=== PATIENT | male | born 1955 | race Caucasian/White ===

== ENCOUNTER 2019-09-28 17:16 | Inpatient (IN) ==
[2019-09-28] MEDS ORDERED: KETOROLAC 30 MG/1 ML VIAL IV STA (17:39)
[2019-09-28 18:33] LABS: Basophils % 0.3 % (0.0-0.8); Eosinophils % 0.3 % (0.00-10.9); Hematocrit 41.6 VOL% (42.0-52.0); Hemoglobin 12.8 GM/DL (14.0-18.0); Immature Granulocytes % 1.3 %; Immature Granulocytes Absolute 0.16 #; Lymphocytes # 1.3 10*3/uL (1.4-4.0); Lymphocytes % 9.9 % (21.2-54.2); Mean Corpuscular HGB Conc 30.8 GM/DL (32-36); Mean Corpuscular Volume 81.3 FL (87-102); Mean Platelet Volume 11.8 FL (9.6-12.0); Monocytes % 8.7 % (1.7-12.7); Neutrophils % 79.5 % (38.7-73.9); Platelet Count 211 T/CUMM (130-400); Red Blood Count 5.12 MC/CUMM (3.8-5.5); Red Cell Distribution Width 16.4 % (9.3-17.3); White Blood Count 12.7 T/CUMM (4-12)
[2019-09-28 19:02] LABS: Alanine Aminotransferase 45 U/L (16-61); Albumin 3.5 G/DL (3.4-5.0); Alkaline Phosphatase 101 U/L (45-117); Aspartate Amino Transferase 63 U/L (0-37); Blood Urea Nitrogen 13 MG/DL (7-18); Calcium 9.7 MG/DL (8.5-10.1); Estimated Glom Filtration Rate 136 ML/MIN; Ferritin 52.3 ng/ml (26-388); Glucose 99 MG/DL (74-106); Osmolality,Calculated 267.2 MOS/KG (273-304); Troponin I < 0.015 NG/ML (0.00-0.045)
[2019-09-28] MEDS ORDERED: POTASSIUM BICARB EFFERVESCENT 25 MEQ TABLET PO ONE (19:13)
[2019-09-28] MEDS ORDERED: AZITHROMYCIN INJ 500 MG in SODIUM CHLORIDE 0.9% 250 ML IV STA (19:14)
[2019-09-28] MEDS ORDERED: cefTRIAXone 1,000 MG in SODIUM CHLORIDE 0.9% 100 ML IV STA (19:14)
[2019-09-28 20:17] LABS: Apearance,Urine CLEAR (Clear); Bilirubin,Urine Negative (Negative); Blood, Urine Negative (Negative); Glucose,Urine (UA) Negative (Negative); Hyaline Casts,Urine 3 /LPF (0-3); Ketones,Urine 5 mg/dL (Negative); Mucus,Urine Occasional /LPF (Occasional); Nitrite,Urine Negative (Negative); Protein,Urine Negative; RBC,Urine 1 /HPF (0-4); Urine Color Yellow (Yellow); Urine Urobilinogen < 2.0 EU/DL (0.2-1.0); WBC,Urine 1 /HPF (0-6)
[2019-09-28] MEDS ORDERED: ACETAMINOPHEN 325 MG TABLET PO PRN (20:49)
[2019-09-28] MEDS ORDERED: GLUCAGON 1 MG VIAL IM PRN (20:49)
[2019-09-28] MEDS ORDERED: ONDANSETRON 4 MG/2 ML VIAL IV PRN (20:49)
[2019-09-28] MEDS ORDERED: DEXTROSE 50% 25 GM/50 ML SYRINGE IV PRN (20:49)
[2019-09-28] MEDS ORDERED: ALBUTEROL 2.5 MG/3 ML NEB RESP TX PRN (20:55)
[2019-09-28] MEDS ORDERED: clonazePAM 0.5 MG TABLET PO PRN (20:55)
[2019-09-28] MEDS: PREGABALIN 75 MG CAPSULE PO SCH (23:00)
[2019-09-28] MEDS: traZODone 50 MG TABLET PO SCH (23:00)
[2019-09-28] MEDS: ENOXAPARIN 40 MG/0.4 ML SYRINGE SUBCUT SCH (23:00)
[2019-09-28] MEDS: CITALOPRAM 40 MG TABLET PO SCH (23:00)
[2019-09-29] MEDS: CHOLECALCIFEROL 1,000 UNIT TABLET PO SCH (08:11)
[2019-09-29] MEDS: MULTIVITAMIN (OCUVITE) TABLET PO SCH (08:11)
[2019-09-29] MEDS: PREGABALIN 75 MG CAPSULE PO SCH ×2 (08:12→21:14)
[2019-09-29] MEDS: ASCORBIC ACID 500 MG TABLET PO SCH (08:12)
[2019-09-29] MEDS: MULTIVITAMIN (CENTRUM) TABLET PO SCH (08:12)
[2019-09-29] MEDS: PANTOPRAZOLE 40 MG TABLET PO SCH (08:12)
[2019-09-29 13:57] LABS: Basophils % 0.3 % (0.0-0.8); Eosinophils % 0.5 % (0.00-10.9); Hematocrit 36.1 VOL% (42.0-52.0); Hemoglobin 11.4 GM/DL (14.0-18.0); Immature Granulocytes % 1.1 %; Lymphocytes # 1.1 10*3/uL (1.4-4.0); Lymphocytes % 12.4 % (21.2-54.2); Mean Corpuscular HGB Conc 31.6 GM/DL (32-36); Mean Corpuscular Volume 79.2 FL (87-102); Mean Platelet Volume 12.2 FL (9.6-12.0); Monocytes % 8.9 % (1.7-12.7); Neutrophils % 76.8 % (38.7-73.9); Platelet Count 227 T/CUMM (130-400); Red Blood Count 4.56 MC/CUMM (3.8-5.5); Red Cell Distribution Width 16.3 % (9.3-17.3); White Blood Count 8.9 T/CUMM (4-12)
[2019-09-29 14:17] LABS: Albumin 3.3 G/DL (3.4-5.0); Bilirubin,Total 0.5 MG/DL (0.2-1.0); Calcium 9.1 MG/DL (8.5-10.1); Osmolality,Calculated 274.8 MOS/KG (273-304); Total Protein 7.8 G/DL (6.4-8.3)
[2019-09-29] MEDS: ASPIRIN CHEW 81 MG TABLET PO SCH (17:02)
[2019-09-29] MEDS ORDERED: AZITHROMYCIN INJ 500 MG in SODIUM CHLORIDE 0.9% 250 ML IV SCH (21:00)
[2019-09-29] MEDS: cefTRIAXone 1,000 MG in SYRINGE 1 EACH IV SCH (21:13)
[2019-09-29] MEDS: traZODone 50 MG TABLET PO SCH (21:13)
[2019-09-29] MEDS: CITALOPRAM 40 MG TABLET PO SCH (21:13)
[2019-09-29] MEDS: ENOXAPARIN 40 MG/0.4 ML SYRINGE SUBCUT SCH (21:14)
[2019-09-29] MEDS: AZITHROMYCIN 250 MG TABLET PO SCH (21:14)
[2019-09-30 05:42] LABS: Basophils # 0.1 10*3/uL (0.0-0.2); Basophils % 0.6 % (0.0-0.8); Eosinophils # 0.1 10*3/uL (0.0-0.87); Eosinophils % 1.2 % (0.00-10.9); Hematocrit 37.1 VOL% (42.0-52.0); Hemoglobin 11.2 GM/DL (14.0-18.0); Immature Granulocytes % 1.2 %; Lymphocytes # 1.3 10*3/uL (1.4-4.0); Mean Corpuscular HGB Conc 30.2 GM/DL (32-36); Mean Corpuscular Volume 81.9 FL (87-102); Mean Platelet Volume 11.6 FL (9.6-12.0); Monocytes % 10.3 % (1.7-12.7); Neutrophils % 71.7 % (38.7-73.9); Platelet Count 208 T/CUMM (130-400); Red Blood Count 4.53 MC/CUMM (3.8-5.5); Red Cell Distribution Width 16.3 % (9.3-17.3); White Blood Count 8.3 T/CUMM (4-12)
[2019-09-30 06:04] LABS: Calcium 8.9 MG/DL (8.5-10.1); Osmolality,Calculated 276.5 MOS/KG (273-304)
[2019-09-30] MEDS: CHOLECALCIFEROL 1,000 UNIT TABLET PO SCH (09:11)
[2019-09-30] MEDS: ASCORBIC ACID 500 MG TABLET PO SCH (09:11)
[2019-09-30] MEDS: MULTIVITAMIN (OCUVITE) TABLET PO SCH (09:12)
[2019-09-30] MEDS: PANTOPRAZOLE 40 MG TABLET PO SCH (09:12)
[2019-09-30] MEDS: PREGABALIN 75 MG CAPSULE PO SCH ×2 (09:12→21:30)
[2019-09-30] MEDS: POTASSIUM CHLORIDE RIDER 10 MEQ in PREMIX 1 EACH IV PRN ×5 (09:12→13:43)
[2019-09-30] MEDS: ASPIRIN CHEW 81 MG TABLET PO SCH (09:12)
[2019-09-30] MEDS: MULTIVITAMIN (CENTRUM) TABLET PO SCH (09:12)
[2019-09-30] MEDS: AZITHROMYCIN 250 MG TABLET PO SCH (21:30)
[2019-09-30] MEDS: traZODone 50 MG TABLET PO SCH (21:30)
[2019-09-30] MEDS: CITALOPRAM 40 MG TABLET PO SCH (21:30)
[2019-09-30] MEDS: ENOXAPARIN 40 MG/0.4 ML SYRINGE SUBCUT SCH (21:35)
[2019-09-30] MEDS: cefTRIAXone 1,000 MG in SYRINGE 1 EACH IV SCH (22:15)
[2019-10-01 05:29] LABS: Basophils % 0.3 % (0.0-0.8); Hematocrit 38.7 VOL% (42.0-52.0); Hemoglobin 11.7 GM/DL (14.0-18.0); Immature Granulocytes % 1.5 %; Immature Granulocytes Absolute 0.15 #; Lymphocytes # 0.7 10*3/uL (1.4-4.0); Lymphocytes % 7.3 % (21.2-54.2); Mean Corpuscular HGB Conc 30.2 GM/DL (32-36); Mean Corpuscular Volume 81.1 FL (87-102); Mean Platelet Volume 12.2 FL (9.6-12.0); Monocytes % 6.4 % (1.7-12.7); Neutrophils % 84.5 % (38.7-73.9); Platelet Count 214 T/CUMM (130-400); Red Blood Count 4.77 MC/CUMM (3.8-5.5); Red Cell Distribution Width 16.3 % (9.3-17.3); White Blood Count 10.2 T/CUMM (4-12)
[2019-10-01 06:05] LABS: Calcium 9.2 MG/DL (8.5-10.1); Osmolality,Calculated 276.5 MOS/KG (273-304)
[2019-10-01] MEDS ORDERED: ETOMIDATE 20 MG/10 ML VIAL IV ONE ×5 (08:45→09:06)
[2019-10-01] MEDS ORDERED: SUCCINYLCHOLINE 200 MG/10 ML VIAL ONE (08:46)
[2019-10-01] MEDS ORDERED: SUCCINYLCHOLINE 200 MG/10 ML VIAL IV ONE (09:06)
[2019-10-01 09:16] VITALS: BP 128/88
[2019-10-01] MEDS ORDERED: PANTOPRAZOLE 40 MG VIAL IV SCH (10:00)
[2019-10-01] MEDS ORDERED: POTASSIUM CHLORIDE 20 MEQ/15 ML UDCUP PER TUBE PRN (10:06)
[2019-10-01] MEDS ORDERED: MAGNESIUM SULF RIDER 50 ML IV ONE (10:17)
[2019-10-01] MEDS: ASPIRIN CHEW 81 MG TABLET PO SCH (10:45)
[2019-10-01] MEDS: MULTIVITAMIN (CENTRUM) TABLET PO SCH (10:45)
[2019-10-01] MEDS: PREGABALIN 75 MG CAPSULE PO SCH (10:45)
[2019-10-01] MEDS: MULTIVITAMIN (OCUVITE) TABLET PO SCH (10:45)
[2019-10-01] MEDS: ASCORBIC ACID 500 MG TABLET PO SCH (10:45)
[2019-10-01] MEDS: CHOLECALCIFEROL 1,000 UNIT TABLET PO SCH (10:45)
[2019-10-01 10:47] LABS: ABG HCO3 27.1 MMOL/L (20-26); ABG Oxygen Saturation 99.7 % (95-100); ABG PCO2 53.9 MM HG (35-48); ABG TCO2 26.7 MMOL/L (23-27); Allen Test Positive; Pt O2 Delivery Device Ventilator
[2019-10-01] MEDS ORDERED: MAGNESIUM SULF RIDER 2 GM in PREMIX 1 EACH IV ONE (11:39)
[2019-10-01] MEDS: PANTOPRAZOLE 40 MG TABLET PO SCH (11:42)
[2019-10-01] MEDS ORDERED: DEXAMETHASONE 4 MG/1 ML VIAL IV SCH (13:00)
[2019-10-01] MEDS ORDERED: DEXAMETHASONE 4 MG/1 ML VIAL IV ONE (13:10)
[2019-10-01 14:18] LABS: ABG Base Excess 3.5 MMOL/L (-2.5-2.5); ABG HCO3 27.5 MMOL/L (20-26); ABG Oxygen Saturation 94.4 % (95-100); ABG PCO2 40.5 MM HG (35-48); ABG PH 7.445 (7.35-7.45); ABG PO2 67.9 MM HG (80-95); ABG TCO2 24.6 MMOL/L (23-27); Allen Test Positive; Pt O2 Delivery Device Ventilator
== END 2019-10-01 17:30 | disposition hospice, home (50) | DRG 64 ==
LOC: EDBD → EDUNIT# → N.ED 17:16 → N.EDINP 20:49 → INTOOBSV 20:49 → SUATTDRO 20:49 → N.2E 21:38 → N.ICU 10-01 08:51
PROVIDERS: ADMIT Family Medicine; ATTEND Internal Medicine